=== PATIENT | male | born 1980 | race Caucasian/White ===

== ENCOUNTER 2018-03-28 09:45 | Emergency (ER) | payer OTHER ==
[2018-03-28] MEDS ORDERED: Lidocaine 2% w/Epinephrine 1:200K 20 ML VIAL ONE (10:06)
[2018-03-28] MEDS ORDERED: Cephalexin 500 MG CAP ONE (10:06)
[2018-03-28] MEDS ORDERED: Adacel (T-DAP) 0.5 ML SYRINGE ONE (10:06)
[2018-03-28] MEDS ORDERED: Bacitracin Zinc 1 Packet ONE (10:06)
== END 2018-03-28 10:49 | disposition home or self-care (01) ==
LOC: MADERS 09:45
DX: S81.812A Laceration without foreign body, left lower leg, initial encounter (principal); W45.8XXA Other foreign body or object entering through skin, initial encounter
CPT/HCPCS: 12002; 90471; 90715